=== PATIENT | female | born 1965 | race Caucasian/White ===

== ENCOUNTER 2022-01-19 10:38 | Observation (INO) ==
[2022-01-19 12:55] VITALS: BMI 34.2
[2022-01-19 13:50] LABS: ABG ALLEN TEST POS; ABG BASE EXCESS 6.1 mmol/L (-2.0-2.0); ABG HCO3 31.2 mmol/L (22-26)
[2022-01-19] MEDS ORDERED: NS 1/2 1,000 ML IV 1,000 ML IV ONE (14:44)
[2022-01-19] MEDS: VSL#3 PO SCH (14:49)
[2022-01-19] MEDS: NS 1/2 1,000 ML IV 1,000 ML IV SCH (14:50)
[2022-01-19] MEDS: LEVAQUIN PREMIX IV 500 MG 500 MG/100 ML BAG IV SCH (14:50)
[2022-01-19] MEDS: VITAMIN A PO SCH (14:50)
[2022-01-19] MEDS: IVERMECTIN PO SCH (14:50)
[2022-01-19] MEDS: ROBITUSSIN DM PO SCH ×3 (14:51→20:41)
[2022-01-19] MEDS: SOLU-Medrol 40 MG VIAL IVP SCH ×2 (14:51→22:14)
[2022-01-19] MEDS: VITAMIN C PO SCH ×2 (14:51→20:41)
[2022-01-19] MEDS: VITAMIN D3 125 mcg (5,000 UNITS) PO SCH (14:51)
[2022-01-19] MEDS: TUSSIONEX PENNKINETIC SUSP PO SCH (14:51)
[2022-01-19] MEDS ORDERED: PHARMACY CONSULT - LOVENOX XX SCH (15:00)
[2022-01-19] MEDS ORDERED: PHARMACY CONSULT - IVERMECTIN XX SCH (15:00)
[2022-01-19 15:05] LABS: BASOPHILS # (AUTO) 0.2 X10^3/uL (0.0-0.1); BASOPHILS % (AUTO) 1.2 % (0.2-1.0); EOSINOPHILS # (AUTO) 0.3 x10^3/uL (0.0-0.2); HEMATOCRIT 43.2 % (36.0-47.0); HEMOGLOBIN 14.6 g/dL (12.0-16.0); LYMPHOCYTES # (AUTO) 4.8 X10^3/uL (1.3-2.9); LYMPHOCYTES % (AUTO) 37.1 % (21.0-51.0); MEAN CORPUSCULAR HEMOGLOBIN 31.2 pg (27.0-34.0); MEAN CORPUSCULAR HGB CONC 33.7 g/dL (33.0-35.0); MEAN CORPUSCULAR VOLUME 92.4 fL (80.0-100.0); MEAN PLATELET VOLUME 7.7 fL (7.4-11.0); MONOCYTES # (AUTO) 1.4 x10^3/uL (0.3-0.8); MONOCYTES % (AUTO) 11.1 % (0.0-13.0); NEUTROPHILS # (AUTO) 6.4 x10^3/uL (2.2-4.8); NEUTROPHILS % (AUTO) 48.6 % (42.0-75.0); RED BLOOD COUNT 4.68 X10^6/uL (3.5-5.4); RED CELL DISTRIBUTION WIDTH 14.1 % (11.6-16.5); WHITE BLOOD COUNT 13.1 X10^3/uL (3.6-10.0)
--- NOTE | 2022-01-19 15:05 | RAD ---
HISTORYPNEUMONIASTUDYCHEST, 1 VIEWCOMPARISONNoneTECHNIQUEAP view of the chestFINDINGSCardiac and mediastinal contours are within normal limits. Lungs are hyperexpanded. There is airspace opacity at the peripheral left mid to lower lung. No definite pleural effusion or pneumothorax. Soft tissue attenuation limits evaluation.IMPRESSIONHyperexpanded lungs consistent with COPD. Airspace opacity in the left mid to lower lung consistent with pneumonia in the right clinical setting. Recommend follow-up to document resolution.Electronically signed by: Sunday Pavon (Jan 19, 2022 15:03:46)
[2022-01-19 15:28] LABS: ALANINE AMINOTRANSFERASE 91 Units/L (12-78); ALBUMIN 3.5 g/dL (3.4-5.0); ALKALINE PHOSPHATASE 77 Units/L (46-116); ASPARTATE AMINO TRANSFERASE 27 Units/L (15-37); BLOOD UREA NITROGEN 11 mg/dL (7-18); CALCIUM 8.5 mg/dL (8.5-10.1); CARBON DIOXIDE 28.6 mmol/L (21-32); CHLORIDE 105 mmol/L (98-107); CKMB % 2.6 % (<4); CREATINE KINASE 47 Units/L (26-192); CREATINE KINASE MB 1.2 ng/mL (0-4.0); CREATININE 0.63 mg/dL (0.55-1.02); SODIUM 142 mmol/L (136-145); TOTAL PROTEIN 7.4 g/dL (6.4-8.2); eGFR NON BLACK RACES > 60 (>60)
[2022-01-19] MEDS: PULMICORT NEB TX 0.5 MG NEB SCH ×2 (16:20→20:10)
[2022-01-19] MEDS: DUONEB 0.5 MG/3 MG (3 mL) NEB SCH ×2 (16:21→20:10)
--- NOTE | 2022-01-19 17:12 | DR.UPDATE ---
H&P Update History and Physical Update: History and Physical reviewed and patient examined. Changes noted: Yes with the following: IS A 56 YEAR OLD PATIENT OF OURS. SHE PRESENTED TO THE OFFICE WITH REPORTS OF PERSISTENT COUGH, SHORTNESS OF BREATH, CONGESTION, WHEEZING, ACHING ALL OVER, FATIGUE, AND FEVER. PATIENT HAD A POSITIVE COVID TEST ON 01/13/2022 AT [facility] IN [place]. AT THAT TIME, SHE WAS STARTED ON DOXYCYCLINE 100MG PO IBD, ASPIRIN 81MG PO DAILY, PRENISONE 20MG PO DAILY, AND NEBULIZER TREAMENTS. SHAUN Landeros DENIES IMPROVEMENT DESPITE COMPLIANCE WITH MEDICATIONS. AUSCULTATION OF LUNG TELLEZ REVEALED RHONCHI AND EXPIRATORY WHEEZES. SHE REPORTS THAT HER OXYGEN SATURATIONS HAVE DROPPED TO THE UPPER 80s AT TIMES. SHE WAS ADMITTED TO THE HOSPITAL FOR FURTHER EVALUATION AND TREATMENT OF PNEUMONIA DUE TO COVID-19, HYPOXIA, SHORTNESS OF BREATH. PMH INCLUDES COPD, HTN, OBESITY, CHOLECYSTECTOMY, AND SHE IS A CURRENT EVERYDAY SMOKER. ON ADMISSION, WE WILL OBTAIN LABS, ABG, BLOOD CULTURES, CHEST XRAY, AND EKG. WE WILL START HER ON S AT 75 ML/HR, LEVAQUIN 500MG IV DAILY, DONEBS TID, PULMICORT NEBS BID, TUSSIONEX 5ML PO Q12H, ROBITUSSIN DM 10ML PO QID, TESSALON PERLES 200MG PO TID, VITAMIN C Q6H, LUVOX 50MG PO BID, IVERMECTIN 51MG PO DAILY, VSL 2 CAPS DAILY, SOLU-MEDROL 80MG IV Q8H, VITAMIN A DAILY, ZINC SULFATE 220MG PO BID, AND LOVENOX. OTHERWISE, WE WILL FOLLOW UP WITH AM LABS AND CHEST XRAY AND CONTINUE TO MONITOR. TIME SPENT ON CLINICAL ASSESSMENT, REVIEWING LABS AND IMAGING, DECISION MAKING, AND DOCUMENTATION WAS GREATER THAN 75 MINUTES. Prescription drug monitoring program results: PDMP was not reviewed H&P Reviewed: Yes Patient was examined?: Yes
[2022-01-19] MEDS: LOVENOX INJ 40 MG SYR SC SCH (20:40)
[2022-01-19] MEDS: ZINC SULFATE PO SCH (20:41)
[2022-01-19] MEDS: LUVOX PO SCH (22:14)
[2022-01-20] MEDS ORDERED: NS 1/2 1,000 ML IV 1,000 ML IV ONE ×2 (02:51→15:38)
[2022-01-20] MEDS: NS 1/2 1,000 ML IV 1,000 ML IV SCH ×3 (02:54→18:06)
[2022-01-20] MEDS: TUSSIONEX PENNKINETIC SUSP PO SCH ×2 (02:54→15:11)
[2022-01-20] MEDS: VITAMIN C PO SCH ×4 (02:54→21:05)
[2022-01-20 05:27] LABS: BASOPHILS % (AUTO) 0.4 % (0.2-1.0); HEMATOCRIT 42.2 % (36.0-47.0); HEMOGLOBIN 14.1 g/dL (12.0-16.0); LYMPHOCYTES % (AUTO) 16.4 % (21.0-51.0); MEAN CORPUSCULAR HEMOGLOBIN 31.2 pg (27.0-34.0); MEAN CORPUSCULAR HGB CONC 33.4 g/dL (33.0-35.0); MEAN CORPUSCULAR VOLUME 93.3 fL (80.0-100.0); MONOCYTES # (AUTO) 0.2 x10^3/uL (0.3-0.8); MONOCYTES % (AUTO) 1.7 % (0.0-13.0); NEUTROPHILS # (AUTO) 9.7 x10^3/uL (2.2-4.8); NEUTROPHILS % (AUTO) 81.5 % (42.0-75.0); RED BLOOD COUNT 4.53 X10^6/uL (3.5-5.4); RED CELL DISTRIBUTION WIDTH 13.8 % (11.6-16.5); WHITE BLOOD COUNT 11.9 X10^3/uL (3.6-10.0)
[2022-01-20 05:28] LABS: ALANINE AMINOTRANSFERASE 76 Units/L (12-78); ALBUMIN 3.1 g/dL (3.4-5.0); ALKALINE PHOSPHATASE 77 Units/L (46-116); ASPARTATE AMINO TRANSFERASE 23 Units/L (15-37); BLOOD UREA NITROGEN 15 mg/dL (7-18); CALCIUM 8.4 mg/dL (8.5-10.1); CARBON DIOXIDE 26.7 mmol/L (21-32); CHLORIDE 104 mmol/L (98-107); COR CA(FOR HYPOALB) 9.1 mg/dL (8.5-10.1); COR NA(FOR HYPERGLY) 139 mmol/L (136-145); CREATININE 0.63 mg/dL (0.55-1.02); SODIUM 138 mmol/L (136-145); TOTAL PROTEIN 7.2 g/dL (6.4-8.2); eGFR NON BLACK RACES > 60 (>60)
[2022-01-20] MEDS: SOLU-Medrol 40 MG VIAL IVP SCH ×3 (05:49→22:21)
[2022-01-20] MEDS: DUONEB 0.5 MG/3 MG (3 mL) NEB SCH ×3 (06:18→20:45)
--- NOTE | 2022-01-20 07:15 | RAD ---
HISTORYCOVID PNEUMONIA; SOBSTUDYCHEST, 1 [id number]/18/2022FINDINGSThe cardiomediastinal silhouette is stable. Faint bilateral airspace opacities. No pneumothorax or effusion. The bony thorax appears intact.IMPRESSIONFaint bilateral airspace opacities which may be seen with COVID-19. Recommend follow-up to resolution.Electronically signed by: ASHLEY RENO (Jan 20, 2022 07:14:07)
[2022-01-20] MEDS: LEVAQUIN PREMIX IV 500 MG 500 MG/100 ML BAG IV SCH (08:06)
[2022-01-20] MEDS: LUVOX PO SCH ×2 (08:06→21:05)
[2022-01-20] MEDS: IVERMECTIN PO SCH (08:06)
[2022-01-20] MEDS: ROBITUSSIN DM PO SCH ×4 (08:06→21:05)
[2022-01-20] MEDS: VITAMIN A PO SCH (08:06)
[2022-01-20] MEDS: VSL#3 PO SCH (08:07)
[2022-01-20] MEDS: ZINC SULFATE PO SCH ×2 (08:07→21:05)
[2022-01-20] MEDS: VITAMIN D3 125 mcg (5,000 UNITS) PO SCH (08:07)
[2022-01-20] MEDS: PULMICORT NEB TX 0.5 MG NEB SCH ×2 (09:12→20:45)
--- NOTE | 2022-01-20 11:08 | CT ---
HISTORYcovid with pneumoniaSTUDYCTA CHESTCOMPARISONOhio State East Hospitalt radi[facility] 01/20/2022TECHNIQUEMultiple CT axial images of the chest were obtained with IV contrast. Coronal and sagittal images were reconstructed. 3D reconstructions using axial MIPS imaging was performed and reviewed. Dose reduction techniques included Automated Exposure Control (AEC) and adjustment of mA and kV.Stenoses are measured using NASCET criteria.FINDINGSPulmonary arteries are identified to segmental branches. There are no pulmonary emboli.The heart is normal in size. The pulmonary artery and aorta have a normal caliber. Mediastinal lymphadenopathy may be reactive from the patient's lung disease. Largest is precarinal with a short dimension of 10 mm.The thyroid has a normal size and configuration. No axillary mass or significant axillary lymphadenopathy is identified. Bilateral breast implants are noted.Wedge-shaped opacity in the anterior left lower lobe could be atelectasis or pneumonia. There are other linear areas in the lung bases and right upper lobe, and also the lingula, which could be atelectasis or the sequelae from pneumonia.No pleural effusion or pneumothorax.Stone upper pole left kidney measures about 5 mm.Surgical clips are present in the gallbladder fossa from a cholecystectomy. Degenerative changes are present in the spine.IMPRESSION1. No pulmonary emboli2. Residual pneumonia or atelectasis with reactive lymphadenopathy3. Left renal calculusElectronically signed by: Dudley Cardenas (Jan 20, 2022 11:06:43)
[2022-01-20] MEDS: LOVENOX INJ 40 MG SYR SC SCH (21:05)
[2022-01-21] MEDS: VITAMIN C PO SCH ×4 (03:46→21:00)
[2022-01-21] MEDS: TUSSIONEX PENNKINETIC SUSP PO SCH ×2 (03:46→14:56)
[2022-01-21 05:19] LABS: BASOPHILS # (AUTO) 0.1 X10^3/uL (0.0-0.1); BASOPHILS % (AUTO) 0.3 % (0.2-1.0); HEMATOCRIT 40.1 % (36.0-47.0); HEMOGLOBIN 13.3 g/dL (12.0-16.0); LYMPHOCYTES % (AUTO) 10.1 % (21.0-51.0); MEAN CORPUSCULAR HGB CONC 33.2 g/dL (33.0-35.0); MEAN CORPUSCULAR VOLUME 93.2 fL (80.0-100.0); MONOCYTES # (AUTO) 1.1 x10^3/uL (0.3-0.8); MONOCYTES % (AUTO) 3.7 % (0.0-13.0); NEUTROPHILS # (AUTO) 25.7 x10^3/uL (2.2-4.8); NEUTROPHILS % (AUTO) 85.9 % (42.0-75.0); RED BLOOD COUNT 4.31 X10^6/uL (3.5-5.4); WHITE BLOOD COUNT 29.9 X10^3/uL (3.6-10.0)
[2022-01-21 05:25] LABS: ALANINE AMINOTRANSFERASE 58 Units/L (12-78); ALKALINE PHOSPHATASE 71 Units/L (46-116); ASPARTATE AMINO TRANSFERASE 17 Units/L (15-37); BLOOD UREA NITROGEN 17 mg/dL (7-18); CHLORIDE 104 mmol/L (98-107); COR CA(FOR HYPOALB) 8.8 mg/dL (8.5-10.1); COR NA(FOR HYPERGLY) 140 mmol/L (136-145); CREATININE 0.66 mg/dL (0.55-1.02); SODIUM 139 mmol/L (136-145); TOTAL PROTEIN 6.6 g/dL (6.4-8.2); eGFR NON BLACK RACES > 60 (>60)
[2022-01-21] MEDS: DUONEB 0.5 MG/3 MG (3 mL) NEB SCH ×3 (06:00→20:07)
[2022-01-21 06:10] LABS: ANISOCYTOSIS SLIGHT; BAND NEUTROPHILS % 2 % (0-10); PLATELET MORPHOLOGY COMMENT NORMAL (NORMAL); TARGET CELLS FEW
[2022-01-21] MEDS ORDERED: NS 1/2 1,000 ML IV 1,000 ML IV ONE ×2 (06:34→21:05)
[2022-01-21] MEDS: SOLU-Medrol 40 MG VIAL IVP SCH ×3 (06:45→21:01)
[2022-01-21] MEDS: NS 1/2 1,000 ML IV 1,000 ML IV SCH ×3 (07:04→22:02)
[2022-01-21] MEDS: IVERMECTIN PO SCH (08:53)
[2022-01-21] MEDS: ROBITUSSIN DM PO SCH ×4 (08:54→20:59)
[2022-01-21] MEDS: LUVOX PO SCH ×2 (08:54→20:58)
[2022-01-21] MEDS: LEVAQUIN PREMIX IV 500 MG 500 MG/100 ML BAG IV SCH (08:54)
[2022-01-21] MEDS: ZINC SULFATE PO SCH ×2 (08:55→21:00)
[2022-01-21] MEDS: VITAMIN A PO SCH (08:55)
[2022-01-21] MEDS: VITAMIN D3 125 mcg (5,000 UNITS) PO SCH (08:56)
[2022-01-21] MEDS: VSL#3 PO SCH (08:56)
[2022-01-21] MEDS: PULMICORT NEB TX 0.5 MG NEB SCH ×2 (09:27→20:07)
--- NOTE | 2022-01-21 10:08 | PCM.PROG ---
Progress Note - Progress Note for Day of Date of Exam: 01/20/22 - Subjective Subjective: WAS ADMITTED FOR TREATMENT OF PNEUMONIA DUE TO COVID-19, HYPOXIA, AND SHORTNESS OF BREATH. HER PMH INCLUDES COPD, HTN, OBESITY, CHOLECYSTECTOMY, AND SHE IS AN EVERYDAY SMOKER. TODAY, SHE IS ALERT AND ORIENTED, LYING IN BED ON MORNING ROUNDS. SHE CONTINUES WITH COMPLAINTS OF COUGH, SHORTNESS OF BREATH, AND GENERALIZED WEAKNESS. SHE IS CURRENTLY UTILIZING OXYGEN VIA NASAL CANNULA AT 2 LPM. SAUTRAIONS HAVE REMAINED IN THE LOWER 90s ON 2 LITERS. ON EXAMINATION, HEART IS REGULAR IN RATE AND RHYTHM. BILATERAL LUNGS NOTED WITH RHONCHI AND EXPIRATORY WHEEZING THROUGHOUT. ABDOMEN IS ROUND, SOFT, AND NON-TENDER WITH NORMAL BOWEL SOUNDS NOTED IN ALL QUADRANTS. HER VITALS THIS MORNING ARE: 97.9-83-22-92%-126/66. LABS WERE OBTAINED. ABNORMAL LAB VALUES INCLUDE THE FOLLOWING: WBC 11.9, GLUCOSE 151, CALCIUM 8.4, CRP 12.50, ALBUMIN 3.1. BLOOD CULTURES ARE PENDING. CHEST XRAY REVEALED: Faint bilateral airspace opacities which may be seen with COVID-19. Recommend follow-up to resolution. A CHEST CTA WAS OBTAINED AND REVEALED: 1. No pulmonary emboli 2. Residual pneumonia or atelectasis with reactive lymphadenopathy 3. Left renal calculus. SHE IS CURRENTLY RECEIVING 1/2NS AT 75 ML/HR, LEVAQUIN 500MG IV DAILY, DONEBS TID, PULMICORT NEBS BID, TUSSIONEX 5ML PO Q12H, ROBITUSSIN DM 10ML PO QID, TESSALON PERLES 200MG PO TID, VITAMIN C Q6H, LUVOX 50MG PO BID, IVERMECTIN 51MG PO DAILY, VSL 2 CAPS DAILY, SOLU-MEDROL 80MG IV Q8H, VITAMIN A DAILY, ZINC SULFATE 220MG PO BID, AND LOVENOX 40MG SC HS. WE WILL CONTINUE WITH CURRENT PLAN OF CARE TODAY. OTHERWISE, WE PLAN TO FOLLOW UP WITH AM LABS AND CHEST XRAY AND CONTINUE TO MONITOR. TIME SPENT ON CLINICAL ASSESSMENT, REVIEWING LABS AND I MAGING, DECISION MAKING, AND DOCUMENTATION WAS GREATER THAN 45 MINUTES. - Past Medical Family Social History Past Med/Fam/Surg Hx: No changes since H&P Allergies: Allergies No Known Drug Allergies Allergy (Verified 01/19/22 13:09) - Review of Systems ROS: No change since H&P - Vital Signs and I&O's Vital Signs: Temperature 98.2 F Pulse Rate [Brachial] 67 Pulse Rate 78 Respiratory Rate 31 Blood Pressure [Left Arm] 129/67 Blood Pressure 114/57 O2 Sat by Pulse Oximetry 96 Intake and Output: Intake & Output 01/18/22 01/19/22 01/20/22 01/21/22 11:59 11:59 11:59 11:59 Intake Total 1857 2520 / 2520 Balance 1857 2520 / 252 - Physical Exam Oriented: Normal Eyes: Normal Ear: Normal Nose: Normal Throat: Normal Respiratory: Generalized, Diminished, Wheezes, Rhonchi Cardiovascular: Normal : Normal Auscultation: Bowel Sounds: Normal Palpation: Normal Tenderness: Normal Skin: Normal Musculoskeletal: Normal Psychiatric: Normal Mood Description: Calm Affect: Normal Speech Pattern: Clear, Appropriate - Laboratory and Diagnostics Result Diagrams: 01/21/22 04:25 01/21/22 04:25 Labs: 01/19/22 14:52 Blood Blood Culture - Preliminary 01/19/22 14:43 Blood Blood Culture - Preliminary Laboratory WBC 29.9 X10^3/uL (3.6-10.0) H D 01/21/22 04:25 RBC 4.31 X10^6/uL (3.5-5.4) 01/21/22 04:25 Hgb 13.3 g/dL (12.0-16.0) 01/21/22 04:25 Hct 40.1 % (36.0-47.0) 01/21/22 04:25 MCV 93.2 fL (80.0-100.0) 01/21/22 04:25 MCH 31.0 pg (27.0-34.0) 01/21/22 04:25 MCHC 33.2 g/dL (33.0-35.0) 01/21/22 04:25 RDW 14.0 % (11.6-16.5) 01/21/22 04:25 Plt Count 400 X10^3/uL (150.0-450.0) 01/21/22 04:25 Plt Count Comment Adequate (ADEQUATE) 01/21/22 04:25 MPV 8.0 fL (7.4-11.0) 01/21/22 04:25 Neut % (Auto) 85.9 % (42.0-75.0) H 01/21/22 04:25 Lymph % (Auto) 10.1 % (21.0-51.0) L 01/21/22 04:25 Centre % (Auto) 3.7 % (0.0-13.0) 01/21/22 04:25 Eos % (Auto) 0.0 % (0.9-2.9) L 01/21/22 04:25 Baso % (Auto) 0.3 % (0.2-1.0) 01/21/22 04:25 Neut # (Auto) 25.7 x10^3/uL (2.2-4.8) H 01/21/22 04:25 Lymph # (Auto) 3.0 X10^3/uL (1.3-2.9) H 01/21/22 04:25 Centre # (Auto) 1.1 x10^3/uL (0.3-0.8) H 01/21/22 04:25 Eos # (Auto) 0.0 x10^3/uL (0.0-0.2) 01/21/22 04:25 Baso # (Auto) 0.1 X10^3/uL (0.0-0.1) 01/21/22 04:25 Absolute Nucleated RBC 0.0 /100WBC 01/21/22 04:25 Total Counted 100 01/21/22 04:25 Neutrophils % (Manual) 87 % (39-76) H 01/21/22 04:25 Band Neutrophils % 2 % (0-10) 01/21/22 04:25 Lymphocytes % (Manual) 7 % (13-43) L 01/21/22 04:25 Monocytes % (Manual) 4 % (4-9) 01/21/22 04:25 Plt Morphology Comment Normal (NORMAL) 01/21/22 04:25 RBC Morphology Abnormal (NORMAL) A 01/21/22 04:25 Anisocytosis Slight A 01/21/22 04:25 Target Cells Few 01/21/22 04:25 D-Dimer < 0.27 ug/ml (0.0-0.57) 01/19/22 14:43 Sample Site Lrad 01/19/22 13:45 ABG pH 7.440 (7.35-7.45) 01/19/22 13:45 ABG pCO2 46.0 mmHg (35.0-45.0) H 01/19/22 13:45 ABG pO2 63.0 mmHg (80.0-100.0) L 01/19/22 13:45 ABG HCO3 31.2 mmol/L (22-26) H* 01/19/22 13:45 ABG O2 Saturation 93.0 % (90-100) 01/19/22 13:45 ABG Base Excess 6.1 mmol/L (-2.0-2.0) H 01/19/22 13:45 Gil Test Pos 01/19/22 13:45 A-a Gradient 29.0 mmHg 01/19/22 13:45 FiO2 21.0 01/19/22 13:45 Blood Gas Comments Pt rajwinder well elj 01/19/22 13:45 Sodium 139 mmol/L (136-145) 01/21/22 04:25 Corrected Sodium 140 mmol/L (136-145) 01/21/22 04:25 Potassium 4.3 mmol/L (3.5-5.1) 01/21/22 04:25 Chloride 104 mmol/L (98-107) 01/21/22 04:25 Carbon Dioxide 27.0 mmol/L (21-32) 01/21/22 04:25 BUN 17 mg/dL (7-18) 01/21/22 04:25 Creatinine 0.66 mg/dL (0.55-1.02) 01/21/22 04:25 Est GFR (MDRD) Af Amer > 60 (>60) 01/21/22 04:25 Est GFR (MDRD) Non-Af > 60 (>60) 01/21/22 04:25 Glucose 143 mg/dL (65-99) H 01/21/22 04:25 POC Glucose (mg/dL) 152 mg/dL (65-99) H 01/21/22 03:50 Calcium 8.0 mg/dL (8.5-10.1) L 01/21/22 04:25 Corrected Calcium 8.8 mg/dL (8.5-10.1) 01/21/22 04:25 Total Bilirubin 0.20 mg/dL (0.2-1.0) 01/21/22 04:25 AST 17 Units/L (15-37) 01/21/22 04:25 ALT 58 Units/L (12-78) 01/21/22 04:25 Alkaline Phosphatase 71 Units/L (46-116) 01/21/22 04:25 Creatine Kinase 47 Units/L (26-192) 01/19/22 14:43 CK-MB (CK-2) 1.2 ng/mL (0-4.0) 01/19/22 14:43 CK/CKMB % Calc 2.6 % (<4) 01/19/22 14:43 Troponin I High Sens 8.0 ng/L (4.0-60.0) 01/19/22 14:43 C-Reactive Protein 4.10 mg/L (0-3.0) H 01/21/22 04:25 B-Natriuretic Peptide 125 pg/mL (0-79) H 01/21/22 04:25 Total Protein 6.6 g/dL (6.4-8.2) 01/21/22 04:25 Albumin 3.0 g/dL (3.4-5.0) L 01/21/22 04:25 Globulin 3.6 g/dL (2.5-4.5) 01/21/22 04:25 Albumin/Globulin Ratio 0.8 Ratio (1.1-2.1) L 01/21/22 04:25 SARS CoV-2 RNA Rapid ISAURO Positive (NEGATIVE) A 01/19/22 13:20 - Plan (1) Pneumonia due to COVID-19 virus Status: Acute Plan: SUPPLEMENTAL OXYGEN, 1/2NS AT 75 ML/HR, LEVAQUIN 500MG IV DAILY, DONEBS TID, PULMICORT NEBS BID, TUSSIONEX 5ML PO Q12H, ROBITUSSIN DM 10ML PO QID, TESSALON PERLES 200MG PO TID, VITAMIN C Q6H, LUVOX 50MG PO BID, IVERMECTIN 51MG PO DAILY, VSL 2 CAPS DAILY, SOLU-MEDROL 80MG IV Q8H, VITAMIN A DAILY, ZINC SULFATE 220MG PO BID, AND LOVENOX 40MG SC HS (2) Hypoxia Status: Acute (3) Shortness of breath Status: Acute (4) COPD (chronic obstructive pulmonary disease) Status: Chronic Qualifiers: COPD type: unspecified COPD Qualified Code(s): J44.9 - Chronic obstructive pulmonary disease, unspecified (5) Hypertension Status: Chronic Qualifiers: Hypertension type: primary hypertension Qualified Code(s): I10 - Essential (primary) hypertension (6) Obesity Status: Chronic Qualifiers: Obesity type: unspecified obesity type Serious obesity comorbidity presence: without serious comorbidity Body mass index: BMI 34.0-34.9
--- NOTE | 2022-01-21 11:03 | RAD ---
HISTORYsob, covid positiveSTUDYCHEST, 1 [id number]/2022FINDINGSThe cardiomediastinal silhouette is stable. Similar bilateral airspace opacities. No pneumothorax. The bony thorax appears intact.IMPRESSIONSimilar bilateral airspace opacities.Electronically signed by: ASHLEY RENO (Jan 21, 2022 11:02:22)
--- NOTE | 2022-01-21 14:33 | PCM.PROG ---
Progress Note - Progress Note for Day of Date of Exam: 01/21/22 - Subjective Subjective: WAS ADMITTED FOR TREATMENT OF PNEUMONIA DUE TO COVID-19, HYPOXIA, AND SHORTNESS OF BREATH. HER PMH INCLUDES COPD, HTN, OBESITY, CHOLECYSTECTOMY, AND SHE IS AN EVERYDAY SMOKER. TODAY, SHE IS ALERT AND ORIENTED, LYING IN BED ON MORNING ROUNDS. SHE CONTINUES WITH COMPLAINTS OF COUGH, SHORTNESS OF BREATH, AND GENERALIZED WEAKNESS. SHE IS CURRENTLY UTILIZING OXYGEN VIA NASAL CANNULA AT 2 LPM. SAUTRAIONS HAVE REMAINED IN THE 90s ON 2 LITERS. ON EXAMINATION, HEART IS REGULAR IN RATE AND RHYTHM. BILATERAL LUNGS NOTED WITH RHONCHI AND EXPIRATORY WHEEZING THROUGHOUT. ABDOMEN IS ROUND, SOFT, AND NON-TENDER WITH NORMAL BOWEL SOUNDS NOTED IN ALL QUADRANTS. HER VITALS THIS MORNING ARE: 98.2-87-27-95%-114/57. LABS WERE OBTAINED. ABNORMAL LAB VALUES INCLUDE THE FOLLOWING: WBC INCREASED TO 29.9, GLUCOSE 143, CALCIUM 8.0, CRP 4.10, BNP 125, ALBUMIN 3.0. BLOOD CULTURES ARE PENDING. CHEST XRAY REVEALED: Similar bilateral airspace opacities. SHE IS CURRENTLY RECEIVING 1/2NS AT 75 ML/HR, LEVAQUIN 500MG IV DAILY, DONEBS TID, PULMICORT NEBS BID, TUSSIONEX 5ML PO Q12H, ROBITUSSIN DM 10ML PO QID, TESSALON PERLES 200MG PO TID, VITAMIN C Q6H, LUVOX 50MG PO BID, IVERMECTIN 51MG PO DAILY, VSL 2 CAPS DAILY, SOLU-MEDROL 80MG IV Q8H, VITAMIN A DAILY, ZINC SULFATE 220MG PO BID, AND LOVENOX 40MG SC HS. WE WILL CONTINUE WITH CURRENT PLAN OF CARE TODAY. OTHERWISE, WE PLAN TO FOLLOW UP WITH AM LABS AND CHEST XRAY AND CONTINUE TO MONITOR. TIME SPENT ON CLINICAL ASSESSMENT, REVIEWING LABS AND IMAGING, DECISION MAKING, AND DOCUMENTATION WAS GREATER THAN 45 MINUTES. - Past Medical Family Social History Past Med/Fam/Surg Hx: No changes since H&P Allergies: Allergies No Known Drug Allergies Allergy (Verified 01/19/22 13:09) - Review of Systems ROS: No change since H&P - Vital Signs and I&O's Vital Signs: Temperature 97.7 F Pulse Rate [Brachial] 67 Pulse Rate 86 Respiratory Rate 16 Blood Pressure [Left Arm] 129/67 Blood Pressure 146/74 O2 Sat by Pulse Oximetry 95 Intake and Output: Intake & Output 01/19/22 01/20/22 01/21/22 01/22/22 11:59 11:59 11:59 11:59 Intake Total 1857 2520 / 2520 Balance 1857 2520 / 2520 - Physical Exam Oriented: Normal Eyes: Normal Ear: Normal Nose: Normal Throat: Normal Respiratory: Generalized, Diminished, Wheezes, Rhonchi Cardiovascular: Normal : Normal Auscultation: Bowel Sounds: Normal Palpation: Normal Tenderness: Normal Skin: Normal Musculoskeletal: Normal Psychiatric: Normal Mood Description: Calm Affect: Normal Speech Pattern: Clear, Appropriate - Laboratory and Diagnostics Result Diagrams: 01/21/22 04:25 01/21/22 04:25 Labs: 01/19/22 14:52 Blood Blood Culture - Preliminary 01/19/22 14:43 Blood Blood Culture - Preliminary Laboratory WBC 29.9 X10^3/uL (3.6-10.0) H D 01/21/22 04:25 RBC 4.31 X10^6/uL (3.5-5.4) 01/21/22 04:25 Hgb 13.3 g/dL (12.0-16.0) 01/21/22 04:25 Hct 40.1 % (36.0-47.0) 01/21/22 04:25 MCV 93.2 fL (80.0-100.0) 01/21/22 04:25 MCH 31.0 pg (27.0-34.0) 01/21/22 04:25 MCHC 33.2 g/dL (33.0-35.0) 01/21/22 04:25 RDW 14.0 % (11.6-16.5) 01/21/22 04:25 Plt Count 400 X10^3/uL (150.0-450.0) 01/21/22 04:25 Plt Count Comment Adequate (ADEQUATE) 01/21/22 04:25 MPV 8.0 fL (7.4-11.0) 01/21/22 04:25 Neut % (Auto) 85.9 % (42.0-75.0) H 01/21/22 04:25 Lymph % (Auto) 10.1 % (21.0-51.0) L 01/21/22 04:25 Dent % (Auto) 3.7 % (0.0-13.0) 01/21/22 04:25 Eos % (Auto) 0.0 % (0.9-2.9) L 01/21/22 04:25 Baso % (Auto) 0.3 % (0.2-1.0) 01/21/22 04:25 Neut # (Auto) 25.7 x10^3/uL (2.2-4.8) H 01/21/22 04:25 Lymph # (Auto) 3.0 X10^3/uL (1.3-2.9) H 01/21/22 04:25 Dent # (Auto) 1.1 x10^3/uL (0.3-0.8) H 01/21/22 04:25 Eos # (Auto) 0.0 x10^3/uL (0.0-0.2) 01/21/22 04:25 Baso # (Auto) 0.1 X10^3/uL (0.0-0.1) 01/21/22 04:25 Absolute Nucleated RBC 0.0 /100WBC 01/21/22 04:25 Total Counted 100 01/21/22 04:25 Neutrophils % (Manual) 87 % (39-76) H 01/21/22 04:25 Band Neutrophils % 2 % (0-10) 01/21/22 04:25 Lymphocytes % (Manual) 7 % (13-43) L 01/21/22 04:25 Monocytes % (Manual) 4 % (4-9) 01/21/22 04:25 Plt Morphology Comment Normal (NORMAL) 01/21/22 04:25 RBC Morphology Abnormal (NORMAL) A 01/21/22 04:25 Anisocytosis Slight A 01/21/22 04:25 Target Cells Few 01/21/22 04:25 D-Dimer < 0.27 ug/ml (0.0-0.57) 01/19/22 14:43 Sample Site Lrad 01/19/22 13:45 ABG pH 7.440 (7.35-7.45) 01/19/22 13:45 ABG pCO2 46.0 mmHg (35.0-45.0) H 01/19/22 13:45 ABG pO2 63.0 mmHg (80.0-100.0) L 01/19/22 13:45 ABG HCO3 31.2 mmol/L (22-26) H* 01/19/22 13:45 ABG O2 Saturation 93.0 % (90-100) 01/19/22 13:45 ABG Base Excess 6.1 mmol/L (-2.0-2.0) H 01/19/22 13:45 Gil Test Pos 01/19/22 13:45 A-a Gradient 29.0 mmHg 01/19/22 13:45 FiO2 21.0 01/19/22 13:45 Blood Gas Comments Pt rajwinder well elj 01/19/22 13:45 Sodium 139 mmol/L (136-145) 01/21/22 04:25 Corrected Sodium 140 mmol/L (136-145) 01/21/22 04:25 Potassium 4.3 mmol/L (3.5-5.1) 01/21/22 04:25 Chloride 104 mmol/L (98-107) 01/21/22 04:25 Carbon Dioxide 27.0 mmol/L (21-32) 01/21/22 04:25 BUN 17 mg/dL (7-18) 01/21/22 04:25 Creatinine 0.66 mg/dL (0.55-1.02) 01/21/22 04:25 Est GFR (MDRD) Af Amer > 60 (>60) 01/21/22 04:25 Est GFR (MDRD) Non-Af > 60 (>60) 01/21/22 04:25 Glucose 143 mg/dL (65-99) H 01/21/22 04:25 POC Glucose (mg/dL) 152 mg/dL (65-99) H 01/21/22 03:50 Calcium 8.0 mg/dL (8.5-10.1) L 01/21/22 04:25 Corrected Calcium 8.8 mg/dL (8.5-10.1) 01/21/22 04:25 Total Bilirubin 0.20 mg/dL (0.2-1.0) 01/21/22 04:25 AST 17 Units/L (15-37) 01/21/22 04:25 ALT 58 Units/L (12-78) 01/21/22 04:25 Alkaline Phosphatase 71 Units/L (46-116) 01/21/22 04:25 Creatine Kinase 47 Units/L (26-192) 01/19/22 14:43 CK-MB (CK-2) 1.2 ng/mL (0-4.0) 01/19/22 14:43 CK/CKMB % Calc 2.6 % (<4) 01/19/22 14:43 Troponin I High Sens 8.0 ng/L (4.0-60.0) 01/19/22 14:43 C-Reactive Protein 4.10 mg/L (0-3.0) H 01/21/22 04:25 B-Natriuretic Peptide 125 pg/mL (0-79) H 01/21/22 04:25 Total Protein 6.6 g/dL (6.4-8.2) 01/21/22 04:25 Albumin 3.0 g/dL (3.4-5.0) L 01/21/22 04:25 Globulin 3.6 g/dL (2.5-4.5) 01/21/22 04:25 Albumin/Globulin Ratio 0.8 Ratio (1.1-2.1) L 01/21/22 04:25 SARS CoV-2 RNA Rapid ISAURO Positive (NEGATIVE) A 01/19/22 13:20 - Plan (1) Pneumonia due to COVID-19 virus Status: Acute Plan: SUPPLEMENTAL OXYGEN, 1/2NS AT 75 ML/HR, LEVAQUIN 500MG IV DAILY, DONEBS TID, PULMICORT NEBS BID, TUSSIONEX 5ML PO Q12H, ROBITUSSIN DM 10ML PO QID, TESSALON PERLES 200MG PO TID, VITAMIN C Q6H, LUVOX 50MG PO BID, IVERMECTIN 51MG PO DAILY, VSL 2 CAPS DAILY, SOLU-MEDROL 80MG IV Q8H, VITAMIN A DAILY, ZINC SULFATE 220MG PO BID, AND LOVENOX 40MG SC HS (2) Hypoxia Status: Acute (3) Shortness of breath Status: Acute (4) COPD (chronic obstructive pulmonary disease) Status: Chronic Qualifiers: COPD type: unspecified COPD Qualified Code(s): J44.9 - Chronic obstructive pulmonary disease, unspecified (5) Hypertension Status: Chronic Qualifiers: Hypertension type: primary hypertension Qualified Code(s): I10 - Essential (primary) hypertension (6) Obesity Status: Chronic Qualifiers: Obesity type: unspecified obesity type Serious obesity comorbidity presence: without serious comorbidity Body mass index: BMI 34.0-34.9
[2022-01-21] MEDS: LOVENOX INJ 40 MG SYR SC SCH (20:59)
[2022-01-21] MEDS ORDERED: MAALOX or MYLANTA PO PRN (21:29)
[2022-01-21] MEDS ORDERED: MAALOX or MYLANTA ONE (21:33)
[2022-01-22] MEDS: TUSSIONEX PENNKINETIC SUSP PO SCH (03:26)
[2022-01-22] MEDS: VITAMIN C PO SCH ×2 (03:26→09:15)
--- NOTE | 2022-01-22 05:37 | RAD ---
HISTORYSOB, COVID+ PMH: COPD PSH: SPLEEN, GB, BREAST IMPLANTS.brSTUDYCHEST, 1 [id number]/20/2022FINDINGSThe trachea is midline. The cardiac silhouette is unremarkable. Patchy bilateral airspace opacities unchanged. No pneumothorax.. The bony thorax is unremarkable.IMPRESSIONStable portable chest.Electronically signed by: Tristen Guevara (Jan 22, 2022 05:35:50)
[2022-01-22 05:43] LABS: BASOPHILS # (AUTO) 0.1 X10^3/uL (0.0-0.1); BASOPHILS % (AUTO) 0.3 % (0.2-1.0); HEMATOCRIT 38.9 % (36.0-47.0); LYMPHOCYTES # (AUTO) 2.1 X10^3/uL (1.3-2.9); LYMPHOCYTES % (AUTO) 8.1 % (21.0-51.0); MEAN CORPUSCULAR HGB CONC 33.4 g/dL (33.0-35.0); MEAN CORPUSCULAR VOLUME 92.7 fL (80.0-100.0); MEAN PLATELET VOLUME 8.1 fL (7.4-11.0); MONOCYTES # (AUTO) 1.1 x10^3/uL (0.3-0.8); MONOCYTES % (AUTO) 4.4 % (0.0-13.0); NEUTROPHILS # (AUTO) 22.3 x10^3/uL (2.2-4.8); NEUTROPHILS % (AUTO) 87.2 % (42.0-75.0); WHITE BLOOD COUNT 25.6 X10^3/uL (3.6-10.0)
[2022-01-22] MEDS: DUONEB 0.5 MG/3 MG (3 mL) NEB SCH ×2 (05:47→14:10)
[2022-01-22 05:49] LABS: ALANINE AMINOTRANSFERASE 54 Units/L (12-78); ALBUMIN 2.8 g/dL (3.4-5.0); ALKALINE PHOSPHATASE 66 Units/L (46-116); ASPARTATE AMINO TRANSFERASE 20 Units/L (15-37); BLOOD UREA NITROGEN 19 mg/dL (7-18); CALCIUM 7.8 mg/dL (8.5-10.1); CARBON DIOXIDE 27.1 mmol/L (21-32); CHLORIDE 105 mmol/L (98-107); COR CA(FOR HYPOALB) 8.8 mg/dL (8.5-10.1); COR NA(FOR HYPERGLY) 140 mmol/L (136-145); CREATININE 0.61 mg/dL (0.55-1.02); SODIUM 139 mmol/L (136-145); TOTAL PROTEIN 6.4 g/dL (6.4-8.2); eGFR NON BLACK RACES > 60 (>60)
[2022-01-22 06:07] LABS: PLATELET MORPHOLOGY COMMENT NORMAL (NORMAL)
[2022-01-22] MEDS: SOLU-Medrol 40 MG VIAL IVP SCH ×2 (06:24→13:39)
[2022-01-22] MEDS: PULMICORT NEB TX 0.5 MG NEB SCH (08:59)
[2022-01-22] MEDS: LEVAQUIN PREMIX IV 500 MG 500 MG/100 ML BAG IV SCH (09:14)
[2022-01-22] MEDS: ZINC SULFATE PO SCH (09:14)
[2022-01-22] MEDS: VITAMIN D3 125 mcg (5,000 UNITS) PO SCH (09:14)
[2022-01-22] MEDS: IVERMECTIN PO SCH (09:14)
[2022-01-22] MEDS: ROBITUSSIN DM PO SCH ×2 (09:15→13:38)
[2022-01-22] MEDS: LUVOX PO SCH (09:15)
[2022-01-22] MEDS: VSL#3 PO SCH (09:15)
[2022-01-22] MEDS: VITAMIN A PO SCH (09:15)
[2022-01-22 13:36] VITALS: BP 135/65
[2022-01-22] MEDS: NS 1/2 1,000 ML IV 1,000 ML IV SCH (13:42)
== END 2022-01-22 15:10 | disposition home or self-care (01) ==
LOC: ICU
PROVIDERS: ADMIT Internal Medicine; ATTEND Internal Medicine
DX: U07.1 COVID-19; Z72.0 Tobacco use; J44.9 Chronic obstructive pulmonary disease, unspecified; J12.82 Pneumonia due to coronavirus disease 2019; R06.02 Shortness of breath; I10 Essential (primary) hypertension; N20.0 Calculus of kidney; R79.82 Elevated C-reactive protein (CRP)